=== PATIENT | female | born 1950 | race Caucasian/White ===

== ENCOUNTER 2017-10-04 11:20 | Outpatient (CLI) | payer MEDICARE, MEDICAID ==
--- NOTE | 2017-10-04 14:20 | MRI ---
MRI LUMBAR SPINE WITHOUT CONTRAST: HISTORY: M54.16 Lumbar radiculopathy, chronic. COMPARISON: None available. FINDINGS: The aorta is nonaneurysmal. No retroperitoneal adenopathy. Visualized portions of the kidneys are u nremarkable. No hydronephrosis. The conus medullaris terminates near the inferior end plate of L1. There is some angioma within T11 vertebral body. There is a Schmorl's node in the inferior end plate of L4 and severe end plate of L5. The remainder of the vertebral body marrow signal is normal. Levels are as follows: T12-l1: Mild degenerative disk space height loss. Mild facet arthrosis. No neural foraminal or spi nal canal narrowing. L1-2: moderate degenerative disk space height loss. Circumferential disk bulge. Mild facet arthros is. There is no significant neural foraminal or spinal or spinal canal narrowing. L2-3: Moderate degenerative disk space height loss. Posterior disk-osteophyte complex which is broa d-based and extends into the subforaminal zone. Mild ligamentum flavum hypertrophy. The spinal jessica l is not narrowed. There is moderate bilateral neural foraminal narrowing. L3-4: Moderate degenerative disk space height loss. Circumferential disk bulge. Moderate facet art hrosis. The spinal canal measures 9 mm. There is moderate bilateral neural foraminal narrowing. L4-5: Mild degenerative disk space height loss. Circumferential disk bulge. Ligamentum flavum hype rtrophy. The spinal canal measures approximately 9 mm. There is moderate left and right neural fora keira narrowing. L5-S1: There is 1 mm anterolisthesis. Severe facet arthropathy. No significant spinal canal narrow ing. There is mild bilateral neural foraminal narrowing. IMPRESSION: 1. Mild to moderate spondylosis as described above worrisome at L3-L5. 2. 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 POS: [facility]
== END 2017-10-04 11:21 | disposition home or self-care (01) ==
LOC: MRI 11:20
PROVIDERS: ATTEND Family Medicine
DX: M47.26 Other spondylosis with radiculopathy, lumbar region (principal); M51.16 Intervertebral disc disorders with radiculopathy, lumbar region
CPT/HCPCS: 72148

== ENCOUNTER 2018-01-07 12:24 | Outpatient (CLI) | payer MEDICARE, MEDICAID | END 2018-01-07 12:25 | disposition home or self-care (01) | LOC: BICMAMMO 12:24 | PROVIDERS: ATTEND Family Medicine | DX: Z12.31 Encounter for screening mammogram for malignant neoplasm of breast (principal) | CPT/HCPCS: 77063; 77067 ==

== ENCOUNTER 2019-01-16 09:37 | Outpatient (CLI) | payer MEDICARE, OTHER ==
--- NOTE | 2019-01-17 14:59 | MMO ---
FILMS COMPARED: The present examination has been compared to prior imaging studies performed at on 05/21/2015. MAMMOGRAM FINDINGS: There are scattered fibroglandular densities. There are benign appearing calcifications seen in both breasts. There are no suspicious masses, calcifications or areas of architectural distortion. IMPRESSION: CALCIFICATIONS IN BOTH BREASTS ARE BENIGN. A ROUTINE FOLLOW-UP MAMMOGRAM IN 1 YEAR IS RECOMMENDED. ACR BI-RADS Category 2 - Benign finding
== END 2019-01-16 09:38 | disposition home or self-care (01) ==
LOC: BICMAMMO 09:37
PROVIDERS: ATTEND Internal Medicine
DX: Z12.31 Encounter for screening mammogram for malignant neoplasm of breast (principal); R92.1 Mammographic calcification found on diagnostic imaging of breast
CPT/HCPCS: 77063; 77067

== ENCOUNTER 2020-01-24 10:36 | Outpatient (CLI) | payer MEDICARE, MEDICAID ==
--- NOTE | 2020-01-24 13:46 | MMO ---
Bilateral MAMMO Bilat Screen [facility]. CLINICAL HISTORY: Patient is 70 years old and is seen for screening. The patient has no family history of breast cancer. The patient has no personal history of cancer. VIEWS: The views performed were: bilateral craniocaudal with tomosynthesis and bilateral mediolateral oblique with tomosynthesis. FILMS COMPARED: The present examination has been compared to prior imaging studies performed at and 01/16/2019. This study has been interpreted with the assistance of computer-aided detection. MAMMOGRAM FINDINGS: There are scattered fibroglandular densities. Benign calcifications are noted bilaterally. There are no suspicious masses, suspicious calcifications, or new areas of architectural distortion. IMPRESSION: THERE IS NO MAMMOGRAPHIC EVIDENCE OF MALIGNANCY. A ROUTINE FOLLOW-UP MAMMOGRAM IN 1 YEAR IS RECOMMENDED. THE RESULTS OF THIS EXAM WERE SENT TO THE PATIENT. ACR BI-RADS Category 2 - Benign finding MAMMOGRAPHY NOTE: 1. A negative mammogram report should not delay a biopsy if a dominant of clinically suspicious mass is present. 2. Approximately 10% to 15% of breast cancers are not detected by mammography. 3. Adenosis and dense breasts may obscure an underlying neoplasm. Reported by: CLEVELAND LOPEZ MD Electonically Signed: [id number]
== END 2020-01-24 10:37 | disposition home or self-care (01) ==
LOC: BICMAMMO 10:36
PROVIDERS: ATTEND Internal Medicine
DX: Z12.31 Encounter for screening mammogram for malignant neoplasm of breast (principal)
CPT/HCPCS: 77063; 77067

== ENCOUNTER 2021-08-26 10:57 | Outpatient (CLI) | payer MEDICARE, MEDICAID | END 2021-08-26 10:58 | disposition home or self-care (01) | LOC: BICMAMMO 10:57 | PROVIDERS: ATTEND Family Medicine | DX: Z12.31 Encounter for screening mammogram for malignant neoplasm of breast (principal) | CPT/HCPCS: 77063; 77067 ==

== ENCOUNTER 2023-12-13 10:46 | Outpatient (CLI) | payer MEDICARE, MEDICAID | END 2023-12-13 10:47 | disposition home or self-care (01) | LOC: BICMAMMO 10:46 | PROVIDERS: ATTEND Nurse Practitioner Family | DX: Z12.31 Encounter for screening mammogram for malignant neoplasm of breast (principal) | CPT/HCPCS: 77063; 77067 ==

== ENCOUNTER 2025-01-05 11:43 | Outpatient (CLI) | payer MEDICARE, MEDICAID | END 2025-01-05 11:44 | disposition home or self-care (01) | LOC: BICMAMMO 11:43 | PROVIDERS: ATTEND Nurse Practitioner Family | DX: Z12.31 Encounter for screening mammogram for malignant neoplasm of breast (principal) | CPT/HCPCS: 77063; 77067 ==

== ENCOUNTER 2025-07-09 23:35 | Emergency (ER) | payer MEDICARE, OTHER | END 2025-07-10 03:55 | disposition home or self-care (01) | LOC: ERS 23:35 | DX: S92.425A Nondisplaced fracture of distal phalanx of left great toe, initial encounter for closed fracture (principal); I12.9 Hypertensive chronic kidney disease with stage 1 through stage 4 chronic kidney disease, or unspecified chronic kidney disease; E11.22 Type 2 diabetes mellitus with diabetic chronic kidney disease; N18.9 Chronic kidney disease, unspecified; W20.8XXA Other cause of strike by thrown, projected or falling object, initial encounter | CPT/HCPCS: 99283 ==